=== PATIENT | female | born 1970 | race Caucasian/White ===

== ENCOUNTER 2022-11-24 19:58 | Emergency (ER) | payer MEDICAID, OTHER ==
[~2022-11-24] VITALS: Ht 162.6 cm; Wt 50.8 kg
[2022-11-24] MEDS ORDERED: ACYC-108 PO (22:17)
[2022-11-24] MEDS ORDERED: PRED50TA PO (22:17)
[2022-11-24 22:42] VITALS: BP 145/90; TEMP 98.9; O2SAT 100
== END 2022-11-24 22:42 | disposition home or self-care (01) ==
LOC: ER 20:06
DX: B02.9 Zoster without complications (principal); I10 Essential (primary) hypertension; Z88.8 Allergy status to other drugs, medicaments and biological substances; Z88.5 Allergy status to narcotic agent; Z60.2 Problems related to living alone

== ENCOUNTER 2024-04-01 21:04 | Emergency (ER) | payer OTHER ==
[~2024-04-01 21:04] MED LIST: ACYC-108 PO; PRED50TA PO
== END 2024-04-01 22:23 | disposition left against medical advice (07) ==
LOC: ER 21:06
DX: S61.219A Laceration without foreign body of unspecified finger without damage to nail, initial encounter (principal); Z53.21 Procedure and treatment not carried out due to patient leaving prior to being seen by health care provider; X58.XXXA Exposure to other specified factors, initial encounter; Y93.89 Activity, other specified; Y92.89 Other specified places as the place of occurrence of the external cause; Y99.8 Other external cause status